=== PATIENT | male | born 1995 | race Caucasian/White ===

== ENCOUNTER 2018-08-10 02:31 | Outpatient (CLI) | payer SELFPAY ==
[2018-08-10 09:40] LABS: HEMOGLOBIN A1C 5.2 % (4.5-6.2)
[2018-08-10 09:54] LABS: CHOL/HDL RATIO 2.42 (0.00-4.99)
== END 2018-08-10 23:59 | disposition home or self-care (01) ==
LOC: HW HEART 02:31
DX: Z13.6 Encounter for screening for cardiovascular disorders (principal); R06.01 Orthopnea
CPT/HCPCS: 36415